=== PATIENT | female | born 1950 | race Native Hawaiian/Other Pacific Islander ===

== ENCOUNTER 2017-02-19 16:53 | Outpatient (CLI) | payer OTHER ==
[~2017-02-19 16:53] MED LIST: ESTRACE2 MG PO; ZOLP10TA2 PO
[2017-02-19 17:34] LABS: POTASSIUM 3.8 mmol/L (3.6-5.2)
[2017-02-19 17:36] LABS: PLATELET COUNT 324 K/uL (152-353)
== END 2017-02-19 18:00 | disposition home or self-care (01) ==
LOC: LABW 16:53
PROVIDERS: Physician Assistant
DX: R07.89 Other chest pain (principal); Z79.01 Long term (current) use of anticoagulants; Z51.81 Encounter for therapeutic drug level monitoring
CPT/HCPCS: 36415; 80053; 82248; 85027

== ENCOUNTER 2018-01-28 14:49 | Outpatient (CLI) | payer OTHER | END 2018-01-28 21:23 | disposition home or self-care (01) | LOC: MAMMO 14:49 | DX: Z12.31 Encounter for screening mammogram for malignant neoplasm of breast (principal) ==

== ENCOUNTER 2019-01-31 09:41 | Outpatient (CLI) | payer OTHER | END 2019-01-31 13:00 | disposition home or self-care (01) | LOC: MAMMO 09:41 | DX: Z12.31 Encounter for screening mammogram for malignant neoplasm of breast (principal); N64.89 Other specified disorders of breast; N95.8 Other specified menopausal and perimenopausal disorders ==

== ENCOUNTER 2019-05-30 14:31 | Outpatient (CLI) | payer OTHER ==
[~2019-05-30] VITALS: Ht 160 cm; Wt 73.5 kg
[2019-05-30 14:48] VITALS: BP 144/66; TEMP 97.6
== END 2019-05-30 15:50 | disposition home or self-care (01) ==
LOC: INF 14:31
DX: M81.0 Age-related osteoporosis without current pathological fracture (principal)
CPT/HCPCS: 36415; 82310; 96372; J0897

== ENCOUNTER 2020-04-13 08:55 | Outpatient (CLI) | payer OTHER ==
[~2020-04-13] VITALS: Ht 160 cm; Wt 76.2 kg
[2020-04-13 10:10] VITALS: BP 158/74; TEMP 98.2
== END 2020-04-13 11:27 | disposition home or self-care (01) ==
LOC: INF 08:55 → MAMMO 11:00 → INF 11:27
DX: M81.0 Age-related osteoporosis without current pathological fracture (principal)
CPT/HCPCS: 36415; 82310; 96372; J0897

== ENCOUNTER 2021-11-21 15:30 | Outpatient (CLI) | payer OTHER | END 2021-11-21 20:03 | disposition home or self-care (01) | LOC: MAMMO 15:30 | PROVIDERS: ATTEND Internal Medicine | DX: Z12.31 Encounter for screening mammogram for malignant neoplasm of breast (principal); Z13.820 Encounter for screening for osteoporosis; M85.88 Other specified disorders of bone density and structure, other site ==

== ENCOUNTER 2022-04-07 15:47 | Outpatient (CLI) | payer OTHER | END 2022-04-07 19:01 | disposition home or self-care (01) | LOC: RAD 15:47 | PROVIDERS: ATTEND Internal Medicine | DX: M25.512 Pain in left shoulder (principal); M25.532 Pain in left wrist; M54.2 Cervicalgia ==

== ENCOUNTER 2022-12-22 14:04 | Outpatient (CLI) | payer OTHER | END 2022-12-22 20:51 | disposition home or self-care (01) | LOC: MAMMO 14:04 | PROVIDERS: ATTEND Internal Medicine | DX: Z12.31 Encounter for screening mammogram for malignant neoplasm of breast (principal) ==